=== PATIENT | female | born 1980 | race American Indian/Alaskan Native ===

== ENCOUNTER 2020-12-22 18:13 | Inpatient (IN) | payer MEDICAID ==
[2020-12-22] MEDS ORDERED: Ketorolac 30 MG/ML SDV IVPUSH ONE (18:39)
[2020-12-22] MEDS ORDERED: Ondansetron 4 MG/2 ML SDV IVPUSH ONE (18:39)
[2020-12-22] MEDS ORDERED: Sodium Chloride 0.9% 1,000 ML IV SCH (18:45)
--- NOTE | 2020-12-22 18:48 | EDM.PDOC ---
ED HPI GENERAL MEDICAL PROBLEM - General Chief Complaint: Genitourinary Problem Stated Complaint: KIDNEY INFECTION Time Seen by Provider: 12/22/20 18:31 Source of Information: Reports: Patient History Limitations: Reports: No Limitations - History of Present Illness INITIAL COMMENTS - FREE TEXT/NARRATIVE: HISTORY AND PHYSICAL: History of present illness: A 40-year-old female presents to the emergency room with complaints of right lower back and RLQ pain, which started yesterday AM. She has had fever for 2 nights and body aches along with nausea. She had vomiting today. She has been treating the fever with Tylenol or Naprosyn. She has had a headache, chills, dizziness and tinnitus today. She states she has never had this type of back pain before. Nothing she does seems to help the pain. She states she has not felt like eating or drinking today. Patient denies change in vision, syncope or near syncope. Denies any chest pain, shortness of breath or cough. Denies any diarrhea, constipation or dysuria. Has not noted any blood in urine or stool. Review of systems: As per history of present illness and below otherwise all systems reviewed and negative. Past medical history: As per history of present illness and as reviewed below otherwise noncontributory. Surgical history: As per history of present illness and as reviewed below otherwise noncontribu tory. Social history: See social history for further information Family history: As per history of present illness and as reviewed below otherwise noncontributory. Physical exam: General: Well developed and well nourished. Alert and orientated x 3. Nontoxic in appearance and mild distress. Vital signs are stable and have been reviewed by me. Nursing notes were reviewed. HEENT: Atraumatic, normocephalic, pupils equal and reactive bilaterally, negative for conjunctival pallor or scleral icterus, mucous membranes moist, throat clear, neck supple, nontender, trachea midline. No drooling or trismus noted. No meningeal signs. No hot potato voice noted. Lungs: Clear to auscultation bilaterally. No wheezes, rales, or rhonchi. Chest nontender. Normal work of breathing, no accessory muscles used. Heart: S1S2, regular rate and rhythm without overt murmur, gallops, or rubs. No JVD. No peripheral edema Abdomen: Soft, nondistended, and tender RLQ. No rebound tenderness. Normoactive bowel sounds. Negative for masses. Right costovertebral tenderness. Skin: Intact, warm, dry. No lesions or rashes noted. Hematologic: No petechiae or purpra. Mucosa appropriate color and normal nail bed color and refill. Extremities: Atraumatic, moves all extremities per self without difficulty or deficits, negative for cords or calf pain. Neurovascular unremarkable. Neuro: Awake, alert, oriented. Cranial nerves II through XII unremarkable. Cerebellum unremarkable. Motor and sensory unremarkable throughout. Exam nonfocal. Psychiatric: Mood and affect are appropriate. Normal thought process. Answering questions appropriately. Notes: *This patient was seen and evaluated during the 2019 SARS-CoV-2 novel coronavirus pandemic period. Community viral transmission is ongoing at time of this encounter and the emergency department is operating under pandemic response procedures. Patient is agreeable to labs, IV fluids and medications. Urine shows UTI, Rocephin ordered at this time. May order CT pending lab results. Patient has a leukocytosis of 20.98 with urine showing 40-50 WBC and +[address] ordered, patient aware. She did get minimal relief with Toradol, will order Dilaudid, she has been taken this in the past without the any problems. I have talked with the patient about today's findings, in addition to providing specific details for plan of care. She states she still feels unwell, we discussed admission. She is agreeable to staying for further care and medications. Kirill was consulted on this case, he is agreeable to accepting this patient. Diagnostics: CBC, CMP, UA, BC x 2, Lactate Therapeutics: IV fluids, Zofran, Toradol, Rocephin, Dilaudid Impression: Pyelonephritis, right Ovarian cysts, right Plan: Inpatient admission to Med/Surg Definitive disposition and diagnosis as appropriate pending reevaluation and review of above. Right flank, back, during urination Pain Score (Numeric/FACES): 8 - Related Data Allergies Allergy/AdvReac Type Severity Reaction Status Date / Time clindamycin Allergy Hives Verified 12/22/20 18:33 morphine Allergy Hives Verified 12/22/20 18:33 Home Meds: Home Meds Gabapentin [Neurontin] 800 mg PO TID 10/27/17 [History] Sertraline HCl [Zoloft] 100 mg PO BID 10/27/17 [History] Omeprazole 20 mg PO BIDAC 12/02/17 [History] carisoprodoL [Soma] 350 mg PO TID 12/02/17 [History] Past Medical History - Past Health History Medical/Surgical History: Denies Medical/Surgical History HEENT History: Reports: None Cardiovascular History: Reports: None Respiratory History: Reports: None Gastrointestinal History: Reports: None Genitourinary History: Reports: None 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: Musculoskeletal History: Reports: None, Fracture Other Musculoskeletal History: Spondylosis, Degenerative disc, chronic sciatica Neurological History: Reports: None Psychiatric History: Reports: Anxiety, Depression, Panic Attack Endocrine/Metabolic History: Reports: None Hematologic History: Reports: None Immunologic History: Reports: None Oncologic (Cancer) History: Reports: None Dermatologic History: Reports: None - Infectious Disease History Infectious Disease History: Reports: None - Past Surgical History Head Surgeries/Procedures: Reports: None GI Surgical History: Reports: Cholecystectomy Musculoskeletal Surgical History: Reports: None Social & Family History - Family History Family Medical History: No Pertinent Family History - Tobacco Use Tobacco Use Status *Q: Current Every Day Tobacco User Years of Tobacco use: 15 Packs/Tins Daily: 0.5 - Caffeine Use Caffeine Use: Reports: Coffee, Energy Drinks - Recreational Drug Use Recreational Drug Use: No ED ROS GENERAL - Review of Systems Review Of Systems: Comprehensive ROS is negative, except as noted in HPI. ED EXAM, RENAL/ - Physical Exam Exam: See Below (See dictation) Course - Vital Signs Last Recorded V/S: Last Vital Signs Temp 98.5 F 12/22/20 18:27 Pulse 106 H 12/22/20 21:03 Resp 16 12/22/20 21:03 BP 106/56 L 12/22/20 21:03 Pulse Ox 95 12/22/20 21:03 - Orders/Labs/Meds Orders: Active Orders 24 hr Category Date Time Status Admission Status [Patient Status] [ADT] Stat ADT 12/22/20 21:42 Active CULTURE BLOOD [BC] Stat Lab 12/22/20 21:05 Ordered CULTURE BLOOD [BC] Stat Lab 12/22/20 21:34 Received CULTURE URINE [RM] Stat Lab 12/22/20 18:30 Received Sodium Chloride 0.9% [Normal Saline] 1,000 ml Med 12/22/20 18:45 Active IV ASDIRECTED Sodium Chloride 0.9% [Normal Saline] 1,000 ml Med 12/22/20 21:09 Active IV STAT Blood Culture x2 Reflex Set [OM.PC] Stat Oth 12/22/20 21:04 Ordered Labs: Laboratory Tests 12/22/20 12/22/20 12/22/20 Range/Units 18:30 18:39 19:04 WBC 20.98 H (4.0-11.0) K/uL RBC 4.56 (4.30-5.90) M/uL Hgb 7.5 L (12.0-16.0) g/dL Hct 27.7 L (36.0-46.0) % MCV 60.7 L (80.0-98.0) fL MCH 16.4 L (27.0-32.0) pg MCHC 27.1 L (31.0-37.0) g/dL RDW Std Deviation 41.5 (28.0-62.0) fl RDW Coeff of Aniyah 19 H (11.0-15.0) % Plt Count 350 (150-400) K/uL MPV 8.20 (7.40-12.00) fL Add Manual Diff YES Neutrophils % (Manual) 79 (48.0-80.0) % Band Neutrophils % 7 % Lymphocytes % (Manual) 8 L (16.0-40.0) % Monocytes % (Manual) 4 (0.0-15.0) % Eosinophils % (Manual) 1 (0.0-7.0) % Basophils % (Manual) 1 (0.0-1.5) % Nucleated RBC % 0.0 /100WBC Absolute Seg Neuts 16.6 H (1.4-5.7) Band Neutrophils # 1.5 Lymphocytes # (Manual) 1.7 (0.6-2.4) Monocytes # (Manual) 0.8 (0.0-0.8) Eosinophils # (Manual) 0.2 (0.0-0.7) Basophils # (Manual) 0.2 H (0.0-0.1) Nucleated RBCs # 0 K/uL Hypochromasia 1+ SLIGHT Poikilocytosis 1+ SLIGHT Anisocytosis 1+ SLIGHT Lactate (0.20-2.00) mmol/L Sodium (136-145) mmol/L Potassium (3.5-5.1) mmol/L Chloride (98-107) mmol/L Carbon Dioxide (21.0-32.0) mmol/L BUN (7.0-18.0) mg/dL Creatinine (0.6-1.0) mg/dL Est Cr Clr Drug Dosing mL/min Estimated GFR (MDRD) ml/min Glucose (74-106) mg/dL Calcium (8.5-10.1) mg/dL Total Bilirubin (0.2-1.0) mg/dL AST (15-37) IU/L ALT (14-63) IU/L Alkaline Phosphatase (46-116) U/L Total Protein (6.4-8.2) g/dL Albumin (3.4-5.0) g/dL Globulin (2.6-4.0) g/dL Albumin/Globulin Ratio (0.9-1.6) Urine Color YELLOW Urine Appearance CLEAR Urine pH 6.5 (5.0-8.0) Ur Specific [place] 1.010 (1.001-1.035) Urine Protein TRACE H (NEGATIVE) mg/dL Urine Glucose (UA) NEGATIVE (NEGATIVE) mg/dL Urine Ketones NEGATIVE (NEGATIVE) mg/dL Urine Occult Blood TRACE-INTACT H (NEGATIVE) Urine Nitrite NEGATIVE (NEGATIVE) Urine Bilirubin NEGATIVE (NEGATIVE) Urine Urobilinogen 1.0 (<2.0) EU/dL Ur Leukocyte Esterase MODERATE H (NEGATIVE) Urine RBC 1-3 (0-2/HPF) Urine WBC 40-50 (0-5/HPF) Ur Epithelial Cells MODERATE (NONE-FEW) Urine Bacteria 1+ H (NEGATIVE) Urine HCG, Qual NEGATIVE (NEGATIVE) SARS-CoV-2 RNA (JUSTINE) (NEGATIVE) 12/22/20 12/22/20 12/22/20 Range/Units 19:04 20:58 21:34 WBC (4.0-11.0) K/uL RBC (4.30-5.90) M/uL Hgb (12.0-16.0) g/dL Hct (36.0-46.0) % MCV (80.0-98.0) fL MCH (27.0-32.0) pg MCHC (31.0-37.0) g/dL RDW Std Deviation (28.0-62.0) fl RDW Coeff of Aniyah (11.0-15.0) % Plt Count (150-400) K/uL MPV (7.40-12.00) fL Add Manual Diff Neutrophils % (Manual) (48.0-80.0) % Band Neutrophils % % Lymphocytes % (Manual) (16.0-40.0) % Monocytes % (Manual) (0.0-15.0) % Eosinophils % (Manual) (0.0-7.0) % Basophils % (Manual) (0.0-1.5) % Nucleated RBC % /100WBC Absolute Seg Neuts (1.4-5.7) Band Neutrophils # Lymphocytes # (Manual) (0.6-2.4) Monocytes # (Manual) (0.0-0.8) Eosinophils # (Manual) (0.0-0.7) Basophils # (Manual) (0.0-0.1) Nucleated RBCs # K/uL Hypochromasia Poikilocytosis Anisocytosis Lactate 0.5 (0.20-2.00) mmol/L Sodium 134 L (136-145) mmol/L Potassium 3.5 (3.5-5.1) mmol/L Chloride 101 (98-107) mmol/L Carbon Dioxide 21.9 (21.0-32.0) mmol/L BUN 12 (7.0-18.0) mg/dL Creatinine 0.8 (0.6-1.0) mg/dL Est Cr Clr Drug Dosing 105.72 mL/min Estimated GFR (MDRD) > 60.0 ml/min Glucose 153 H (74-106) mg/dL Calcium 8.4 L (8.5-10.1) mg/dL Total Bilirubin 0.4 (0.2-1.0) mg/dL AST 19 (15-37) IU/L ALT 31 (14-63) IU/L Alkaline Phosphatase 113 (46-116) U/L Total Protein 7.4 (6.4-8.2) g/dL Albumin 3.3 L (3.4-5.0) g/dL Globulin 4.1 H (2.6-4.0) g/dL Albumin/Globulin Ratio 0.8 L (0.9-1.6) Urine Color Urine Appearance Urine pH (5.0-8.0) Ur Specific [place] (1.001-1.035) Urine Protein (NEGATIVE) mg/dL Urine Glucose (UA) (NEGATIVE) mg/dL Urine Ketones (NEGATIVE) mg/dL Urine Occult Blood (NEGATIVE) Urine Nitrite (NEGATIVE) Urine Bilirubin (NEGATIVE) Urine Urobilinogen (<2.0) EU/dL Ur Leukocyte Esterase (NEGATIVE) Urine RBC (0-2/HPF) Urine WBC (0-5/HPF) Ur Epithelial Cells (NONE-FEW) Urine Bacteria (NEGATIVE) Urine HCG, Qual (NEGATIVE) SARS-CoV-2 RNA (JUSTINE) NEGATIVE (NEGATIVE) Departure - Departure Time of Disposition: 21:46 Disposition: Admitted As Inpatient 64 Clinical Impression: Pyelonephritis - Discharge Information Referrals: Marialuisa Hunter NP [Primary Care Provider] - Forms: ED Department Discharge Sepsis Event Note (ED) - Evaluation Sepsis Screening Result: No Definite Risk - Focused Exam Vital Signs: Vital Signs Temp Pulse Resp BP Pulse Ox 12/22/20 21:03 106 H 16 106/56 L 95 12/22/20 20:35 107 H 16 111/52 L 94 L 12/22/20 20:07 100 20 106/63 96 12/22/20 18:27 98.5 F 118 H 18 128/82 96 - My Orders Last 24 Hours: My Active Orders 12/22/20 18:30 CULTURE URINE [RM] Stat 12/22/20 18:45 Sodium Chloride 0.9% [Normal Saline] 1,000 ml IV ASDIRECTED 12/22/20 21:04 Blood Culture x2 Reflex Set [OM.PC] Stat 12/22/20 21:05 CULTURE BLOOD [BC] Stat 12/22/20 21:09 Sodium Chloride 0.9% [Normal Saline] 1,000 ml IV STAT 12/22/20 21:34 CULTURE BLOOD [BC] Stat 12/22/20 21:42 Admission Status [Patient Status] [ADT] Stat - Assessment/Plan Last 24 Hours: My Active Orders 12/22/20 18:30 CULTURE URINE [RM] Stat 12/22/20 18:45 Sodium Chloride 0.9% [Normal Saline] 1,000 ml IV ASDIRECTED 12/22/20 21:04 Blood Culture x2 Reflex Set [OM.PC] Stat 12/22/20 21:05 CULTURE BLOOD [BC] Stat 12/22/20 21:09 Sodium Chloride 0.9% [Normal Saline] 1,000 ml IV STAT 12/22/20 21:34 CULTURE BLOOD [BC] Stat 12/22/20 21:42 Admission Status [Patient Status] [ADT] Stat
[2020-12-22] MEDS ORDERED: cefTRIAXone 1 GM in Premix Bag 1 BAG IV ONE (19:03)
[2020-12-22 19:35] LABS: BLOOD UREA NITROGEN,BUN 12 mg/dL (7.0-18.0); CARBON DIOXIDE,CO2 21.9 mmol/L (21.0-32.0); CHLORIDE,CL 101 mmol/L (98-107); GLUCOSE RANDOM 153 mg/dL (74-106); POTASSIUM,K 3.5 mmol/L (3.5-5.1); SODIUM,NA 134 mmol/L (136-145)
[2020-12-22] MEDS ORDERED: HYDROmorphone 1 MG/ML Syringe IVPUSH ONE (19:57)
[2020-12-22] MEDS ORDERED: Iopamidol 755 MG/ML 500 ML Multipack Bottle IVPUSH STA (20:21)
--- NOTE | 2020-12-22 21:00 | CT ---
INDICATION: Right lower quadrant pain COMPARISON: 11/23/2020 TECHNIQUE: CT examination of the abdomen and pelvis was performed with the uneventful intravenous administration of 100 cc of Isovue 370 while 2.5 mm thick axial sections were obtained from the lung bases through the pubic symphysis. Oral contrast was not administered. Please note that all CT scans at this facility use dose modulation, iterative reconstruction, and/or weight-based dosing when appropriate to reduce radiation dose to as low as reasonably achievable. FINDINGS: In the abdomen, the liver, spleen, pancreas, and adrenals are normal in appearance. The kidneys are normal in appearance. Clips are seen in the gall bladder fossa from cholecystectomy. The common bile duct is moderately dilated at 14 millimeters, extending through the head of the pancreas, consistent with post cholecystectomy status. The abdominal aorta is normal in caliber with no sign of dilatation. There is no sign of retroperitoneal mass or adenopathy. The stomach, loops of small bowel, and right colon in the abdomen are normal in appearance. There is moderate diverticulosis of the descending colon with no sign of diverticulitis. In the pelvis, the appendix is normal in appearance with no sign of inflammatory process. There is moderate proximal sigmoid diverticulosis without evidence of diverticulitis. The loops of small bowel and colon in the pelvis are otherwise normal in appearance. The right ovary contains a 3.5 x 3.1 centimeter cyst. The uterus and left ovary are normal in appearance. The urinary bladder is normal in appearance. There is no sign of pelvic or inguinal mass or adenopathy. There is no sign of free air or free fluid in the abdomen or pelvis. The lung bases are clear. There is severe L4-5 and L5-S1 disc degenerative disease. The osseous structures are otherwise normal in appearance for the patient`s age. IMPRESSION: CT of the abdomen shows changes of cholecystectomy with moderate dilatation of the common bile duct consistent with post cholecystectomy status. Moderate diverticulosis of the descending colon with no sign of diverticulitis. CT of the pelvis shows a 3.5 x 3.1 centimeter right ovarian cyst. Normal appearance of the appendix. Moderate diverticulosis of the proximal sigmoid colon with no sign of diverticulitis. Please note that all CT scans at this facility use dose modulation, iterative reconstruction, and/or weight-based dosing when appropriate to reduce radiation dose to as low as reasonably achievable. Dictated by Navjot Gilman MD @ Dec 22 2020 8:54PM Signed by Dr. Navjot Gilman @ Dec 22 2020 9:00PM
[2020-12-22] MEDS ORDERED: Sodium Chloride 0.9% 1,000 ML IV ONE (21:09)
--- NOTE | 2020-12-22 23:07 | PCM.HP.2 ---
H&P History of Present Illness - General Date of Service: 12/22/20 Admit Problem/Dx: Admission Diagnosis/Problem Admission Diagnosis/Problem Pyelonephritis - History of Present Illness Initial Comments - Free Text/Narative: 40 yo female with pmh of sciatica and anemia who presented to the ED with two day history of right flank pain, fevers and dysuria with urinary frequency. Patient reports nausea and vomiting. Patient denies any blood in her stool but reports heavier menses past few months. Right flank, back, during urination Pain Score (Numeric/FACES): 6 - Related Data Allergies/Adverse Reactions: Allergies Allergy/AdvReac Type Severity Reaction Status Date / Time clindamycin Allergy Hives Verified 12/23/20 01:26 morphine Allergy Hives Verified 12/23/20 01:26 Home Medications: Home Meds Gabapentin [Neurontin] 800 mg PO TID 10/27/17 [History] Sertraline HCl [Zoloft] 100 mg PO BID 10/27/17 [History] Omeprazole 20 mg PO BIDAC 12/02/17 [History] carisoprodoL [Soma] 350 mg PO TID 12/02/17 [History] Famotidine [Pepcid] 1 tab PO DAILY PRN 12/23/20 [History] Past Medical History - Past Health History Medical/Surgical History: Denies Medical/Surgical History HEENT History: Reports: None Cardiovascular History: Reports: None Respiratory History: Reports: None Gastrointestinal History: Reports: None Genitourinary History: Reports: None 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: Musculoskeletal History: Reports: None, Fracture Other Musculoskeletal History: Spondylosis, Degenerative disc, chronic sciatica Neurological History: Reports: None Psychiatric History: Reports: Anxiety, Depression, Panic Attack Endocrine/Metabolic History: Reports: None Hematologic History: Reports: None Immunologic History: Reports: None Oncologic (Cancer) History: Reports: None Dermatologic History: Reports: None - Infectious Disease History Infectious Disease History: Reports: None - Past Surgical History Head Surgeries/Procedures: Reports: None GI Surgical History: Reports: Cholecystectomy Musculoskeletal Surgical History: Reports: None Social & Family History - Family History Family Medical History: No Pertinent Family History - Tobacco Use Tobacco Use Status *Q: Current Every Day Tobacco User Years of Tobacco use: 15 Packs/Tins Daily: 1 Used Tobacco, but Quit: No Second Hand Smoke Exposure: No - Caffeine Use Caffeine Use: Reports: Coffee, Soda - Recreational Drug Use Recreational Drug Use: No H&P Review of Systems - Review of Systems: Review Of Systems: Comprehensive ROS is negative, except as noted in HPI. Exam - Exam Exam: See Below - Vital Signs Vital Signs: Last Vital Signs Temp 37.1 C 12/22/20 22:29 Pulse 98 12/22/20 22:29 Resp 16 12/22/20 22:29 BP 110/67 12/22/20 22:29 Pulse Ox 96 12/22/20 22:29 Weight: 90.083 kg - Exam General: Alert, Oriented HEENT: Mucosa Moist & [place] Neck: Supple Lungs: Clear to Auscultation, Normal Respiratory Effort Cardiovascular: Regular Rate, Regular Rhythm GI/Abdominal Exam: Normal Bowel Sounds, Soft, Non-Tender Back Exam: No: CVA Tenderness (L), CVA Tenderness (R) Skin: Warm, Dry, Intact - Patient Data Lab Results Last 24 hrs: Laboratory Results - last 24 hr 12/22/20 12/22/20 12/22/20 Range/Units 18:30 18:39 19:04 WBC 20.98 H (4.0-11.0) K/uL RBC 4.56 (4.30-5.90) M/uL Hgb 7.5 L (12.0-16.0) g/dL Hct 27.7 L (36.0-46.0) % MCV 60.7 L (80.0-98.0) fL MCH 16.4 L (27.0-32.0) pg MCHC 27.1 L (31.0-37.0) g/dL RDW Std Deviation 41.5 (28.0-62.0) fl RDW Coeff of Aniyah 19 H (11.0-15.0) % Plt Count 350 (150-400) K/uL MPV 8.20 (7.40-12.00) fL Add Manual Diff YES Neutrophils % (Manual) 79 (48.0-80.0) % Band Neutrophils % 7 % Lymphocytes % (Manual) 8 L (16.0-40.0) % Monocytes % (Manual) 4 (0.0-15.0) % Eosinophils % (Manual) 1 (0.0-7.0) % Basophils % (Manual) 1 (0.0-1.5) % Nucleated RBC % 0.0 /100WBC Absolute Seg Neuts 16.6 H (1.4-5.7) Band Neutrophils # 1.5 Lymphocytes # (Manual) 1.7 (0.6-2.4) Monocytes # (Manual) 0.8 (0.0-0.8) Eosinophils # (Manual) 0.2 (0.0-0.7) Basophils # (Manual) 0.2 H (0.0-0.1) Nucleated RBCs # 0 K/uL Hypochromasia 1+ SLIGHT Poikilocytosis 1+ SLIGHT Anisocytosis 1+ SLIGHT Lactate (0.20-2.00) mmol/L Sodium (136-145) mmol/L Potassium (3.5-5.1) mmol/L Chloride (98-107) mmol/L Carbon Dioxide (21.0-32.0) mmol/L BUN (7.0-18.0) mg/dL Creatinine (0.6-1.0) mg/dL Est Cr Clr Drug Dosing mL/min Estimated GFR (MDRD) ml/min Glucose (74-106) mg/dL Calcium (8.5-10.1) mg/dL Total Bilirubin (0.2-1.0) mg/dL AST (15-37) IU/L ALT (14-63) IU/L Alkaline Phosphatase (46-116) U/L Total Protein (6.4-8.2) g/dL Albumin (3.4-5.0) g/dL Globulin (2.6-4.0) g/dL Albumin/Globulin Ratio (0.9-1.6) Urine Color YELLOW Urine Appearance CLEAR Urine pH 6.5 (5.0-8.0) Ur Specific [place] 1.010 (1.001-1.035) Urine Protein TRACE H (NEGATIVE) mg/dL Urine Glucose (UA) NEGATIVE (NEGATIVE) mg/dL Urine Ketones NEGATIVE (NEGATIVE) mg/dL Urine Occult Blood TRACE-INTACT H (NEGATIVE) Urine Nitrite NEGATIVE (NEGATIVE) Urine Bilirubin NEGATIVE (NEGATIVE) Urine Urobilinogen 1.0 (<2.0) EU/dL Ur Leukocyte Esterase MODERATE H (NEGATIVE) Urine RBC 1-3 (0-2/HPF) Urine WBC 40-50 (0-5/HPF) Ur Epithelial Cells MODERATE (NONE-FEW) Urine Bacteria 1+ H (NEGATIVE) Urine HCG, Qual NEGATIVE (NEGATIVE) SARS-CoV-2 RNA (JUSTINE) (NEGATIVE) 12/22/20 12/22/20 12/22/20 Range/Units 19:04 20:58 21:34 WBC (4.0-11.0) K/uL RBC (4.30-5.90) M/uL Hgb (12.0-16.0) g/dL Hct (36.0-46.0) % MCV (80.0-98.0) fL MCH (27.0-32.0) pg MCHC (31.0-37.0) g/dL RDW Std Deviation (28.0-62.0) fl RDW Coeff of Aniyah (11.0-15.0) % Plt Count (150-400) K/uL MPV (7.40-12.00) fL Add Manual Diff Neutrophils % (Manual) (48.0-80.0) % Band Neutrophils % % Lymphocytes % (Manual) (16.0-40.0) % Monocytes % (Manual) (0.0-15.0) % Eosinophils % (Manual) (0.0-7.0) % Basophils % (Manual) (0.0-1.5) % Nucleated RBC % /100WBC Absolute Seg Neuts (1.4-5.7) Band Neutrophils # Lymphocytes # (Manual) (0.6-2.4) Monocytes # (Manual) (0.0-0.8) Eosinophils # (Manual) (0.0-0.7) Basophils # (Manual) (0.0-0.1) Nucleated RBCs # K/uL Hypochromasia Poikilocytosis Anisocytosis Lactate 0.5 (0.20-2.00) mmol/L Sodium 134 L (136-145) mmol/L Potassium 3.5 (3.5-5.1) mmol/L Chloride 101 (98-107) mmol/L Carbon Dioxide 21.9 (21.0-32.0) mmol/L BUN 12 (7.0-18.0) mg/dL Creatinine 0.8 (0.6-1.0) mg/dL Est Cr Clr Drug Dosing 105.72 mL/min Estimated GFR (MDRD) > 60.0 ml/min Glucose 153 H (74-106) mg/dL Calcium 8.4 L (8.5-10.1) mg/dL Total Bilirubin 0.4 (0.2-1.0) mg/dL AST 19 (15-37) IU/L ALT 31 (14-63) IU/L Alkaline Phosphatase 113 (46-116) U/L Total Protein 7.4 (6.4-8.2) g/dL Albumin 3.3 L (3.4-5.0) g/dL Globulin 4.1 H (2.6-4.0) g/dL Albumin/Globulin Ratio 0.8 L (0.9-1.6) Urine Color Urine Appearance Urine pH (5.0-8.0) Ur Specific [place] (1.001-1.035) Urine Protein (NEGATIVE) mg/dL Urine Glucose (UA) (NEGATIVE) mg/dL Urine Ketones (NEGATIVE) mg/dL Urine Occult Blood (NEGATIVE) Urine Nitrite (NEGATIVE) Urine Bilirubin (NEGATIVE) Urine Urobilinogen (<2.0) EU/dL Ur Leukocyte Esterase (NEGATIVE) Urine RBC (0-2/HPF) Urine WBC (0-5/HPF) Ur Epithelial Cells (NONE-FEW) Urine Bacteria (NEGATIVE) Urine HCG, Qual (NEGATIVE) SARS-CoV-2 RNA (JUSTINE) NEGATIVE (NEGATIVE) Result Diagrams: 12/24/20 05:55 12/24/20 05:55 Sepsis Event Note - Evaluation Sepsis Screening Result: No Definite Risk - Focused Exam Vital Signs: Vital Signs Temp Pulse Resp BP Pulse Ox 12/22/20 22:29 37.1 C 98 16 110/67 96 12/22/20 21:48 107 H 14 114/63 94 L 12/22/20 21:03 106 H 16 106/56 L 95 12/22/20 20:35 107 H 16 111/52 L 94 L 12/22/20 20:07 100 20 106/63 96 12/22/20 18:27 36.9 C 118 H 18 128/82 96 - Problem List (1) Sepsis secondary to UTI SNOMED Code(s): 105016225 ICD Code: A41.9 - SEPSIS, UNSPECIFIED ORGANISM; N39.0 - URINARY TRACT INFECTION, SITE NOT SPECIFIED Status: Acute Current Visit: Yes (2) Anemia SNOMED Code(s): 624692768 ICD Code: D64.9 - ANEMIA, UNSPECIFIED Status: Chronic Current Visit: Yes Qualifiers: Anemia type: iron deficiency Iron deficiency anemia type: chronic blood loss Qualified Code(s): D50.0 - Iron deficiency anemia secondary to blood loss (chronic) Problem List Initiated/Reviewed/Updated: Yes Orders Last 24hrs: Active Orders 24 hr Category Date Time Status Admission Status [Patient Status] [ADT] Stat ADT 12/22/20 21:42 Active CULTURE BLOOD [BC] Stat Lab 12/22/20 21:34 Received CULTURE BLOOD [BC] Stat Lab 12/22/20 21:44 Received CULTURE URINE [RM] Stat Lab 12/22/20 18:30 Received HYDROmorphone [Dilaudid] Med 12/22/20 22:59 Active 0.5 mg IVPUSH Q3H PRN Sodium Chloride 0.9% [Normal Saline] 1,000 ml Med 12/22/20 18:45 Active IV ASDIRECTED Sodium Chloride 0.9% [Normal Saline] 1,000 ml Med 12/22/20 21:09 Active IV STAT Blood Culture x2 Reflex Set [OM.PC] Stat Oth 12/22/20 21:04 Ordered Assessment/Plan Comment:: 40 yo female admitted for suspected pyelonephritis with sepsis. We will treat with meropenem and vancomycin. Cultures ordered. Tachycardia resolved after fluid resuscitation.
[2020-12-22] MEDS: HYDROmorphone 1 MG/ML Syringe IVPUSH PRN (23:19)
[2020-12-22] MEDS ORDERED: Ondansetron 4 MG/2 ML SDV IVPUSH PRN (23:26)
[2020-12-22] MEDS ORDERED: Meropenem 1 GM in Sodium Chloride 0.9% 100 ML IV SCH (23:30)
[2020-12-23] MEDS ORDERED: VANCOmycin 2 GM/400 ML 2 GM in Premix Bag 1 BAG IV ONE ×2
[2020-12-23] MEDS: Meropenem Premix 50 ML IV SCH ×3 (00:31→17:25)
[2020-12-23] MEDS: Heparin Sodium 5,000 Units/ML Vial SUBCUT SCH ×2 (00:31→06:36)
[2020-12-23] MEDS: Sodium Chloride 0.9% 1,000 ML IV SCH ×2 (00:32→17:41)
[2020-12-23] MEDS: HYDROmorphone 1 MG/ML Syringe IVPUSH PRN ×6 (03:50→21:37)
[2020-12-23 05:58] LABS: BLOOD UREA NITROGEN,BUN 8 mg/dL (7.0-18.0); CARBON DIOXIDE,CO2 22.8 mmol/L (21.0-32.0); CHLORIDE,CL 108 mmol/L (98-107); GLUCOSE RANDOM 104 mg/dL (74-106); POTASSIUM,K 3.8 mmol/L (3.5-5.1); SODIUM,NA 139 mmol/L (136-145)
[2020-12-23] MEDS: Gabapentin 800 MG Tab PO SCH ×3 (06:36→22:52)
[2020-12-23] MEDS ORDERED: Omeprazole 20 MG Cap.CR PO SCH (07:30)
--- NOTE | 2020-12-23 08:00 | PCM.PN ---
- General Info Date of Service: 12/23/20 Admission Dx/Problem (Free Text): Admission Diagnosis/Problem Admission Diagnosis/Problem Pyelonephritis Subjective Update: Reports she is feeling mildly improved from last night. She reports lightheadedness and dizziness intermittently. Reports mild frontal headache. Continues to report right flank pain denies any dysuria or lower abdominal pain. No diarrhea and no bleeding noted. Reports her last heavy menstrual period was approximately 1 month ago reports that she just had a. And it was approximately 3 days of bleeding which had improved since previous months. Denies ever having black or bloody bowel movements. Does have intermittent heartburn and takes Prilosec at home twice a day. Functional Status: Reports: Pain Controlled, Tolerating Diet, Ambulating, Urinating - Review of Systems General: Reports: Fatigue, Malaise HEENT: Reports: Headaches (Frontal). Denies: Sore Throat, Visual Changes Pulmonary: Reports: No Symptoms. Denies: Shortness of Breath, Cough, Sputum Cardiovascular: Reports: Lightheadedness. Denies: Chest Pain, Palpitations, Edema Gastrointestinal: Denies: Abdominal Pain, Nausea, Vomiting Genitourinary: Reports: Flank Pain (Mainly right-sided). Denies: Dysuria Musculoskeletal: Reports: Other (Right sciatic pain and cramping) Skin: Reports: No Symptoms Neurological: Reports: No Symptoms Psychiatric: Reports: No Symptoms - Patient Data Vitals - Most Recent: Last Vital Signs Temp 99.4 F 12/23/20 03:26 Pulse 88 12/23/20 03:26 Resp 12 12/23/20 03:26 BP 98/54 L 12/23/20 03:26 Pulse Ox 98 12/23/20 03:26 Weight - Most Recent: 90.083 kg I&O - Last 24 Hours: Intake & Output 12/22/20 12/23/20 12/23/20 22:59 06:59 14:59 Intake Total 2450 Output Total 800 Balance 1650 Lab Results Last 24 Hours: Laboratory Results - last 24 hr 12/22/20 12/22/20 12/22/20 Range/Units 18:30 18:39 19:04 WBC 20.98 H (4.0-11.0) K/uL RBC 4.56 (4.30-5.90) M/uL Hgb 7.5 L (12.0-16.0) g/dL Hct 27.7 L (36.0-46.0) % MCV 60.7 L (80.0-98.0) fL MCH 16.4 L (27.0-32.0) pg MCHC 27.1 L (31.0-37.0) g/dL RDW Std Deviation 41.5 (28.0-62.0) fl RDW Coeff of Aniyah 19 H (11.0-15.0) % Plt Count 350 (150-400) K/uL MPV 8.20 (7.40-12.00) fL Neut % (Auto) (48.0-80.0) % Lymph % (Auto) (16.0-40.0) % [place] % (Auto) (0.0-15.0) % Eos % (Auto) (0.0-7.0) % Baso % (Auto) (0.0-1.5) % Neut # (Auto) (1.4-5.7) K/uL Lymph # (Auto) (0.6-2.4) K/uL [place] # (Auto) (0.0-0.8) K/uL Eos # (Auto) (0.0-0.7) K/uL Baso # (Auto) (0.0-0.1) K/uL Add Manual Diff YES Neutrophils % (Manual) 79 (48.0-80.0) % Band Neutrophils % 7 % Lymphocytes % (Manual) 8 L (16.0-40.0) % Monocytes % (Manual) 4 (0.0-15.0) % Eosinophils % (Manual) 1 (0.0-7.0) % Basophils % (Manual) 1 (0.0-1.5) % Nucleated RBC % 0.0 /100WBC Absolute Seg Neuts 16.6 H (1.4-5.7) Band Neutrophils # 1.5 Lymphocytes # (Manual) 1.7 (0.6-2.4) Monocytes # (Manual) 0.8 (0.0-0.8) Eosinophils # (Manual) 0.2 (0.0-0.7) Basophils # (Manual) 0.2 H (0.0-0.1) Nucleated RBCs # 0 K/uL Hypochromasia 1+ SLIGHT Poikilocytosis 1+ SLIGHT Anisocytosis 1+ SLIGHT Lactate (0.20-2.00) mmol/L Sodium (136-145) mmol/L Potassium (3.5-5.1) mmol/L Chloride (98-107) mmol/L Carbon Dioxide (21.0-32.0) mmol/L BUN (7.0-18.0) mg/dL Creatinine (0.6-1.0) mg/dL Est Cr Clr Drug Dosing mL/min Estimated GFR (MDRD) ml/min Glucose (74-106) mg/dL Calcium (8.5-10.1) mg/dL Iron (50-175) ug/dL TIBC (250-450) ug/dL % Saturation (20-55) % Ferritin (8-252) ng/mL Total Bilirubin (0.2-1.0) mg/dL AST (15-37) IU/L ALT (14-63) IU/L Alkaline Phosphatase (46-116) U/L Total Protein (6.4-8.2) g/dL Albumin (3.4-5.0) g/dL Globulin (2.6-4.0) g/dL Albumin/Globulin Ratio (0.9-1.6) Urine Color YELLOW Urine Appearance CLEAR Urine pH 6.5 (5.0-8.0) Ur Specific [place] 1.010 (1.001-1.035) Urine Protein TRACE H (NEGATIVE) mg/dL Urine Glucose (UA) NEGATIVE (NEGATIVE) mg/dL Urine Ketones NEGATIVE (NEGATIVE) mg/dL Urine Occult Blood TRACE-INTACT H (NEGATIVE) Urine Nitrite NEGATIVE (NEGATIVE) Urine Bilirubin NEGATIVE (NEGATIVE) Urine Urobilinogen 1.0 (<2.0) EU/dL Ur Leukocyte Esterase MODERATE H (NEGATIVE) Urine RBC 1-3 (0-2/HPF) Urine WBC 40-50 (0-5/HPF) Ur Epithelial Cells MODERATE (NONE-FEW) Urine Bacteria 1+ H (NEGATIVE) Urine HCG, Qual NEGATIVE (NEGATIVE) SARS-CoV-2 RNA (JUSTINE) (NEGATIVE) 12/22/20 12/22/20 12/22/20 Range/Units 19:04 20:58 21:34 WBC (4.0-11.0) K/uL RBC (4.30-5.90) M/uL Hgb (12.0-16.0) g/dL Hct (36.0-46.0) % MCV (80.0-98.0) fL MCH (27.0-32.0) pg MCHC (31.0-37.0) g/dL RDW Std Deviation (28.0-62.0) fl RDW Coeff of Aniyah (11.0-15.0) % Plt Count (150-400) K/uL MPV (7.40-12.00) fL Neut % (Auto) (48.0-80.0) % Lymph % (Auto) (16.0-40.0) % [place] % (Auto) (0.0-15.0) % Eos % (Auto) (0.0-7.0) % Baso % (Auto) (0.0-1.5) % Neut # (Auto) (1.4-5.7) K/uL Lymph # (Auto) (0.6-2.4) K/uL [place] # (Auto) (0.0-0.8) K/uL Eos # (Auto) (0.0-0.7) K/uL Baso # (Auto) (0.0-0.1) K/uL Add Manual Diff Neutrophils % (Manual) (48.0-80.0) % Band Neutrophils % % Lymphocytes % (Manual) (16.0-40.0) % Monocytes % (Manual) (0.0-15.0) % Eosinophils % (Manual) (0.0-7.0) % Basophils % (Manual) (0.0-1.5) % Nucleated RBC % /100WBC Absolute Seg Neuts (1.4-5.7) Band Neutrophils # Lymphocytes # (Manual) (0.6-2.4) Monocytes # (Manual) (0.0-0.8) Eosinophils # (Manual) (0.0-0.7) Basophils # (Manual) (0.0-0.1) Nucleated RBCs # K/uL Hypochromasia Poikilocytosis Anisocytosis Lactate 0.5 (0.20-2.00) mmol/L Sodium 134 L (136-145) mmol/L Potassium 3.5 (3.5-5.1) mmol/L Chloride 101 (98-107) mmol/L Carbon Dioxide 21.9 (21.0-32.0) mmol/L BUN 12 (7.0-18.0) mg/dL Creatinine 0.8 (0.6-1.0) mg/dL Est Cr Clr Drug Dosing 105.72 mL/min Estimated GFR (MDRD) > 60.0 ml/min Glucose 153 H (74-106) mg/dL Calcium 8.4 L (8.5-10.1) mg/dL Iron (50-175) ug/dL TIBC (250-450) ug/dL % Saturation (20-55) % Ferritin (8-252) ng/mL Total Bilirubin 0.4 (0.2-1.0) mg/dL AST 19 (15-37) IU/L ALT 31 (14-63) IU/L Alkaline Phosphatase 113 (46-116) U/L Total Protein 7.4 (6.4-8.2) g/dL Albumin 3.3 L (3.4-5.0) g/dL Globulin 4.1 H (2.6-4.0) g/dL Albumin/Globulin Ratio 0.8 L (0.9-1.6) Urine Color Urine Appearance Urine pH (5.0-8.0) Ur Specific [place] (1.001-1.035) Urine Protein (NEGATIVE) mg/dL Urine Glucose (UA) (NEGATIVE) mg/dL Urine Ketones (NEGATIVE) mg/dL Urine Occult Blood (NEGATIVE) Urine Nitrite (NEGATIVE) Urine Bilirubin (NEGATIVE) Urine Urobilinogen (<2.0) EU/dL Ur Leukocyte Esterase (NEGATIVE) Urine RBC (0-2/HPF) Urine WBC (0-5/HPF) Ur Epithelial Cells (NONE-FEW) Urine Bacteria (NEGATIVE) Urine HCG, Qual (NEGATIVE) SARS-CoV-2 RNA (JUSTINE) NEGATIVE (NEGATIVE) 12/23/20 12/23/20 12/23/20 Range/Units 05:12 05:12 05:12 WBC 16.17 H (4.0-11.0) K/uL RBC 3.85 L (4.30-5.90) M/uL Hgb 6.3 L (12.0-16.0) g/dL Hct 23.7 L (36.0-46.0) % MCV 61.6 L (80.0-98.0) fL MCH 16.4 L (27.0-32.0) pg MCHC 26.6 L (31.0-37.0) g/dL RDW Std Deviation 42.6 (28.0-62.0) fl RDW Coeff of Aniyah 19 H (11.0-15.0) % Plt Count 296 (150-400) K/uL MPV 8.40 (7.40-12.00) fL Neut % (Auto) 79.7 (48.0-80.0) % Lymph % (Auto) 10.0 L (16.0-40.0) % [place] % (Auto) 9.0 (0.0-15.0) % Eos % (Auto) 1.2 (0.0-7.0) % Baso % (Auto) 0.1 (0.0-1.5) % Neut # (Auto) 12.9 H (1.4-5.7) K/uL Lymph # (Auto) 1.6 (0.6-2.4) K/uL [place] # (Auto) 1.5 H (0.0-0.8) K/uL Eos # (Auto) 0.2 (0.0-0.7) K/uL Baso # (Auto) 0.0 (0.0-0.1) K/uL Add Manual Diff Neutrophils % (Manual) (48.0-80.0) % Band Neutrophils % % Lymphocytes % (Manual) (16.0-40.0) % Monocytes % (Manual) (0.0-15.0) % Eosinophils % (Manual) (0.0-7.0) % Basophils % (Manual) (0.0-1.5) % Nucleated RBC % 0.0 /100WBC Absolute Seg Neuts (1.4-5.7) Band Neutrophils # Lymphocytes # (Manual) (0.6-2.4) Monocytes # (Manual) (0.0-0.8) Eosinophils # (Manual) (0.0-0.7) Basophils # (Manual) (0.0-0.1) Nucleated RBCs # 0 K/uL Hypochromasia Poikilocytosis Anisocytosis Lactate (0.20-2.00) mmol/L Sodium 139 (136-145) mmol/L Potassium 3.8 (3.5-5.1) mmol/L Chloride 108 H (98-107) mmol/L Carbon Dioxide 22.8 (21.0-32.0) mmol/L BUN 8 (7.0-18.0) mg/dL Creatinine 0.7 (0.6-1.0) mg/dL Est Cr Clr Drug Dosing 120.82 mL/min Estimated GFR (MDRD) > 60.0 ml/min Glucose 104 (74-106) mg/dL Calcium 7.8 L (8.5-10.1) mg/dL Iron 6 L (50-175) ug/dL TIBC 330 (250-450) ug/dL % Saturation 1.82 L (20-55) % Ferritin 43 (8-252) ng/mL Total Bilirubin 0.3 (0.2-1.0) mg/dL AST 12 L (15-37) IU/L ALT 24 (14-63) IU/L Alkaline Phosphatase 88 (46-116) U/L Total Protein 5.9 L (6.4-8.2) g/dL Albumin 2.5 L (3.4-5.0) g/dL Globulin 3.4 (2.6-4.0) g/dL Albumin/Globulin Ratio 0.7 L (0.9-1.6) Urine Color Urine Appearance Urine pH (5.0-8.0) Ur Specific [place] (1.001-1.035) Urine Protein (NEGATIVE) mg/dL Urine Glucose (UA) (NEGATIVE) mg/dL Urine Ketones (NEGATIVE) mg/dL Urine Occult Blood (NEGATIVE) Urine Nitrite (NEGATIVE) Urine Bilirubin (NEGATIVE) Urine Urobilinogen (<2.0) EU/dL Ur Leukocyte Esterase (NEGATIVE) Urine RBC (0-2/HPF) Urine WBC (0-5/HPF) Ur Epithelial Cells (NONE-FEW) Urine Bacteria (NEGATIVE) Urine HCG, Qual (NEGATIVE) SARS-CoV-2 RNA (JUSTINE) (NEGATIVE) - Exam Quality Assessment: DVT Prophylaxis. No: Supplemental Oxygen General: Alert, Oriented, Cooperative, No Acute Distress Lungs: Clear to Auscultation, Normal Respiratory Effort Cardiovascular: Regular Rate, Regular Rhythm, No Murmurs GI/Abdominal Exam: Normal Bowel Sounds, Soft, Non-Tender Back Exam: CVA Tenderness (R) Extremities: Normal Inspection, Normal Range of Motion, Non-Tender, No Pedal Edema Wound/Incisions: Healing Well Neurological: No New Focal Deficit Psy/Mental Status: Alert, Normal Affect, Normal Mood - Patient Data Lab Results Last 24 hrs: Laboratory Results - last 24 hr 12/22/20 12/22/20 12/22/20 Range/Units 18:30 18:39 19:04 WBC 20.98 H (4.0-11.0) K/uL RBC 4.56 (4.30-5.90) M/uL Hgb 7.5 L (12.0-16.0) g/dL Hct 27.7 L (36.0-46.0) % MCV 60.7 L (80.0-98.0) fL MCH 16.4 L (27.0-32.0) pg MCHC 27.1 L (31.0-37.0) g/dL RDW Std Deviation 41.5 (28.0-62.0) fl RDW Coeff of Aniyah 19 H (11.0-15.0) % Plt Count 350 (150-400) K/uL MPV 8.20 (7.40-12.00) fL Neut % (Auto) (48.0-80.0) % Lymph % (Auto) (16.0-40.0) % [place] % (Auto) (0.0-15.0) % Eos % (Auto) (0.0-7.0) % Baso % (Auto) (0.0-1.5) % Neut # (Auto) (1.4-5.7) K/uL Lymph # (Auto) (0.6-2.4) K/uL [place] # (Auto) (0.0-0.8) K/uL Eos # (Auto) (0.0-0.7) K/uL Baso # (Auto) (0.0-0.1) K/uL Add Manual Diff YES Neutrophils % (Manual) 79 (48.0-80.0) % Band Neutrophils % 7 % Lymphocytes % (Manual) 8 L (16.0-40.0) % Monocytes % (Manual) 4 (0.0-15.0) % Eosinophils % (Manual) 1 (0.0-7.0) % Basophils % (Manual) 1 (0.0-1.5) % Nucleated RBC % 0.0 /100WBC Absolute Seg Neuts 16.6 H (1.4-5.7) Band Neutrophils # 1.5 Lymphocytes # (Manual) 1.7 (0.6-2.4) Monocytes # (Manual) 0.8 (0.0-0.8) Eosinophils # (Manual) 0.2 (0.0-0.7) Basophils # (Manual) 0.2 H (0.0-0.1) Nucleated RBCs # 0 K/uL Hypochromasia 1+ SLIGHT Poikilocytosis 1+ SLIGHT Anisocytosis 1+ SLIGHT Lactate (0.20-2.00) mmol/L Sodium (136-145) mmol/L Potassium (3.5-5.1) mmol/L Chloride (98-107) mmol/L Carbon Dioxide (21.0-32.0) mmol/L BUN (7.0-18.0) mg/dL Creatinine (0.6-1.0) mg/dL Est Cr Clr Drug Dosing mL/min Estimated GFR (MDRD) ml/min Glucose (74-106) mg/dL Calcium (8.5-10.1) mg/dL Iron (50-175) ug/dL TIBC (250-450) ug/dL % Saturation (20-55) % Ferritin (8-252) ng/mL Total Bilirubin (0.2-1.0) mg/dL AST (15-37) IU/L ALT (14-63) IU/L Alkaline Phosphatase (46-116) U/L Total Protein (6.4-8.2) g/dL Albumin (3.4-5.0) g/dL Globulin (2.6-4.0) g/dL Albumin/Globulin Ratio (0.9-1.6) Urine Color YELLOW Urine Appearance CLEAR Urine pH 6.5 (5.0-8.0) Ur Specific [place] 1.010 (1.001-1.035) Urine Protein TRACE H (NEGATIVE) mg/dL Urine Glucose (UA) NEGATIVE (NEGATIVE) mg/dL Urine Ketones NEGATIVE (NEGATIVE) mg/dL Urine Occult Blood TRACE-INTACT H (NEGATIVE) Urine Nitrite NEGATIVE (NEGATIVE) Urine Bilirubin NEGATIVE (NEGATIVE) Urine Urobilinogen 1.0 (<2.0) EU/dL Ur Leukocyte Esterase MODERATE H (NEGATIVE) Urine RBC 1-3 (0-2/HPF) Urine WBC 40-50 (0-5/HPF) Ur Epithelial Cells MODERATE (NONE-FEW) Urine Bacteria 1+ H (NEGATIVE) Urine HCG, Qual NEGATIVE (NEGATIVE) SARS-CoV-2 RNA (JUSTINE) (NEGATIVE) 12/22/20 12/22/20 12/22/20 Range/Units 19:04 20:58 21:34 WBC (4.0-11.0) K/uL RBC (4.30-5.90) M/uL Hgb (12.0-16.0) g/dL Hct (36.0-46.0) % MCV (80.0-98.0) fL MCH (27.0-32.0) pg MCHC (31.0-37.0) g/dL RDW Std Deviation (28.0-62.0) fl RDW Coeff of Aniyah (11.0-15.0) % Plt Count (150-400) K/uL MPV (7.40-12.00) fL Neut % (Auto) (48.0-80.0) % Lymph % (Auto) (16.0-40.0) % [place] % (Auto) (0.0-15.0) % Eos % (Auto) (0.0-7.0) % Baso % (Auto) (0.0-1.5) % Neut # (Auto) (1.4-5.7) K/uL Lymph # (Auto) (0.6-2.4) K/uL [place] # (Auto) (0.0-0.8) K/uL Eos # (Auto) (0.0-0.7) K/uL Baso # (Auto) (0.0-0.1) K/uL Add Manual Diff Neutrophils % (Manual) (48.0-80.0) % Band Neutrophils % % Lymphocytes % (Manual) (16.0-40.0) % Monocytes % (Manual) (0.0-15.0) % Eosinophils % (Manual) (0.0-7.0) % Basophils % (Manual) (0.0-1.5) % Nucleated RBC % /100WBC Absolute Seg Neuts (1.4-5.7) Band Neutrophils # Lymphocytes # (Manual) (0.6-2.4) Monocytes # (Manual) (0.0-0.8) Eosinophils # (Manual) (0.0-0.7) Basophils # (Manual) (0.0-0.1) Nucleated RBCs # K/uL Hypochromasia Poikilocytosis Anisocytosis Lactate 0.5 (0.20-2.00) mmol/L Sodium 134 L (136-145) mmol/L Potassium 3.5 (3.5-5.1) mmol/L Chloride 101 (98-107) mmol/L Carbon Dioxide 21.9 (21.0-32.0) mmol/L BUN 12 (7.0-18.0) mg/dL Creatinine 0.8 (0.6-1.0) mg/dL Est Cr Clr Drug Dosing 105.72 mL/min Estimated GFR (MDRD) > 60.0 ml/min Glucose 153 H (74-106) mg/dL Calcium 8.4 L (8.5-10.1) mg/dL Iron (50-175) ug/dL TIBC (250-450) ug/dL % Saturation (20-55) % Ferritin (8-252) ng/mL Total Bilirubin 0.4 (0.2-1.0) mg/dL AST 19 (15-37) IU/L ALT 31 (14-63) IU/L Alkaline Phosphatase 113 (46-116) U/L Total Protein 7.4 (6.4-8.2) g/dL Albumin 3.3 L (3.4-5.0) g/dL Globulin 4.1 H (2.6-4.0) g/dL Albumin/Globulin Ratio 0.8 L (0.9-1.6) Urine Color Urine Appearance Urine pH (5.0-8.0) Ur Specific [place] (1.001-1.035) Urine Protein (NEGATIVE) mg/dL Urine Glucose (UA) (NEGATIVE) mg/dL Urine Ketones (NEGATIVE) mg/dL Urine Occult Blood (NEGATIVE) Urine Nitrite (NEGATIVE) Urine Bilirubin (NEGATIVE) Urine Urobilinogen (<2.0) EU/dL Ur Leukocyte Esterase (NEGATIVE) Urine RBC (0-2/HPF) Urine WBC (0-5/HPF) Ur Epithelial Cells (NONE-FEW) Urine Bacteria (NEGATIVE) Urine HCG, Qual (NEGATIVE) SARS-CoV-2 RNA (JUSTINE) NEGATIVE (NEGATIVE) 12/23/20 12/23/20 12/23/20 Range/Units 05:12 05:12 05:12 WBC 16.17 H (4.0-11.0) K/uL RBC 3.85 L (4.30-5.90) M/uL Hgb 6.3 L (12.0-16.0) g/dL Hct 23.7 L (36.0-46.0) % MCV 61.6 L (80.0-98.0) fL MCH 16.4 L (27.0-32.0) pg MCHC 26.6 L (31.0-37.0) g/dL RDW Std Deviation 42.6 (28.0-62.0) fl RDW Coeff of Aniyah 19 H (11.0-15.0) % Plt Count 296 (150-400) K/uL MPV 8.40 (7.40-12.00) fL Neut % (Auto) 79.7 (48.0-80.0) % Lymph % (Auto) 10.0 L (16.0-40.0) % [place] % (Auto) 9.0 (0.0-15.0) % Eos % (Auto) 1.2 (0.0-7.0) % Baso % (Auto) 0.1 (0.0-1.5) % Neut # (Auto) 12.9 H (1.4-5.7) K/uL Lymph # (Auto) 1.6 (0.6-2.4) K/uL [place] # (Auto) 1.5 H (0.0-0.8) K/uL Eos # (Auto) 0.2 (0.0-0.7) K/uL Baso # (Auto) 0.0 (0.0-0.1) K/uL Add Manual Diff Neutrophils % (Manual) (48.0-80.0) % Band Neutrophils % % Lymphocytes % (Manual) (16.0-40.0) % Monocytes % (Manual) (0.0-15.0) % Eosinophils % (Manual) (0.0-7.0) % Basophils % (Manual) (0.0-1.5) % Nucleated RBC % 0.0 /100WBC Absolute Seg Neuts (1.4-5.7) Band Neutrophils # Lymphocytes # (Manual) (0.6-2.4) Monocytes # (Manual) (0.0-0.8) Eosinophils # (Manual) (0.0-0.7) Basophils # (Manual) (0.0-0.1) Nucleated RBCs # 0 K/uL Hypochromasia Poikilocytosis Anisocytosis Lactate (0.20-2.00) mmol/L Sodium 139 (136-145) mmol/L Potassium 3.8 (3.5-5.1) mmol/L Chloride 108 H (98-107) mmol/L Carbon Dioxide 22.8 (21.0-32.0) mmol/L BUN 8 (7.0-18.0) mg/dL Creatinine 0.7 (0.6-1.0) mg/dL Est Cr Clr Drug Dosing 120.82 mL/min Estimated GFR (MDRD) > 60.0 ml/min Glucose 104 (74-106) mg/dL Calcium 7.8 L (8.5-10.1) mg/dL Iron 6 L (50-175) ug/dL TIBC 330 (250-450) ug/dL % Saturation 1.82 L (20-55) % Ferritin 43 (8-252) ng/mL Total Bilirubin 0.3 (0.2-1.0) mg/dL AST 12 L (15-37) IU/L ALT 24 (14-63) IU/L Alkaline Phosphatase 88 (46-116) U/L Total Protein 5.9 L (6.4-8.2) g/dL Albumin 2.5 L (3.4-5.0) g/dL Globulin 3.4 (2.6-4.0) g/dL Albumin/Globulin Ratio 0.7 L (0.9-1.6) Urine Color Urine Appearance Urine pH (5.0-8.0) Ur Specific [place] (1.001-1.035) Urine Protein (NEGATIVE) mg/dL Urine Glucose (UA) (NEGATIVE) mg/dL Urine Ketones (NEGATIVE) mg/dL Urine Occult Blood (NEGATIVE) Urine Nitrite (NEGATIVE) Urine Bilirubin (NEGATIVE) Urine Urobilinogen (<2.0) EU/dL Ur Leukocyte Esterase (NEGATIVE) Urine RBC (0-2/HPF) Urine WBC (0-5/HPF) Ur Epithelial Cells (NONE-FEW) Urine Bacteria (NEGATIVE) Urine HCG, Qual (NEGATIVE) SARS-CoV-2 RNA (JUSTINE) (NEGATIVE) Result Diagrams: 12/23/20 05:12 12/23/20 05:12 Sepsis Event Note - Evaluation Sepsis Screening Result: No Definite Risk - Focused Exam Vital Signs: Vital Signs Temp Pulse Resp BP Pulse Ox Pulse Ox 12/23/20 03:26 99.4 F 88 12 98/54 L 98 12/22/20 23:26 96 12/22/20 22:29 98.8 F 98 16 110/67 96 12/22/20 21:48 107 H 14 114/63 94 L 12/22/20 21:03 106 H 16 106/56 L 95 12/22/20 20:35 107 H 16 111/52 L 94 L 12/22/20 20:07 100 20 106/63 96 - Problem List & Annotations (1) Sepsis SNOMED Code(s): 50457541 Code(s): A41.9 - SEPSIS, UNSPECIFIED ORGANISM Status: Acute Current Visit: Yes Qualifiers: Sepsis type: sepsis due to unspecified organism Sepsis acute organ dysfunction status: without acute organ dysfunction Qualified Code(s): A41.9 - Sepsis, unspecified organism (2) Pyelonephritis SNOMED Code(s): 94692650 Code(s): N12 - TUBULO-INTERSTITIAL NEPHRITIS, NOT SPCF ACUTE OR CHRONIC Status: Acute Current Visit: Yes (3) Chronic back pain SNOMED Code(s): 202044078 Code(s): M54.9 - DORSALGIA, UNSPECIFIED; G89.29 - OTHER CHRONIC PAIN Status: Chronic Current Visit: No Qualifiers: Back pain location: low back pain Back pain laterality: unspecified Sciatica presence: with sciatica Qualified Code(s): M54.5 - Low back pain; G89.29 - Other chronic pain; G89.29 - Other chronic pain (4) Other ovarian cyst, right side SNOMED Code(s): 37717420 Code(s): N83.291 - OTHER OVARIAN CYST, RIGHT SIDE Status: Acute Current Visit: No (5) Anemia SNOMED Code(s): 545693529 Code(s): D64.9 - ANEMIA, UNSPECIFIED Status: Chronic Current Visit: No Qualifiers: Anemia type: iron deficiency Iron deficiency anemia type: chronic blood loss Qualified Code(s): D50.0 - Iron deficiency anemia secondary to blood loss (chronic) (6) Dysfunctional uterine bleeding SNOMED Code(s): 04337534620062 Code(s): N93.8 - OTHER SPECIFIED ABNORMAL UTERINE AND VAGINAL BLEEDING Status: Chronic Current Visit: Yes - Problem List Review Problem List Initiated/Reviewed/Updated: Yes - My Orders Last 24 Hours: My Active Orders 12/23/20 07:57 RED BLOOD CELLS LP [BBK] Routine TYPE AND SCREEN [BBK] Routine 12/23/20 07:58 Verify Patient Consent Obtain [RC] ASDIRECTED 12/23/20 07:59 Intake and Output [RC] QSHIFT - Plan Plan:: 40 yo female admitted for suspected pyelonephritis with sepsis. 1. Sepsis with suspected pyelonephritis -Sepsis resolved with aggressive IV fluid resuscitation. Hypotension has resolved as well as tachycardia. -Continue meropenem and vancomycin -Blood cultures and urine culture are pending -Continue normal saline 125 mL/h -Dilaudid for pain control as needed -Zofran as needed nausea 2. Iron deficiency anemia likely secondary to dysfunctional uterine bleeding -Iron 6 TIBC 330% saturation 1.8 ferritin 43 -Hemoglobin today 6.3 patient is symptomatic with lightheadedness and dizziness -Transfuse 2 units PRBCs today monitor H&H 1 hour posttransfusion -We will obtain Hemoccult to ensure patient is not having GI bleeding -We will also give 500 mg IV iron today -Start oral iron supplementation -Referral for [employer] consultation due to dysfunctional uterine bleeding placed. 3. Chronic back pain with sciatica -Continue gabapentin and Soma -Encourage ambulation VTE prophylaxis: Hold heparin for now until Hemoccult is obtained GI prophylaxis: Protonix twice daily CODE STATUS: Full code Dispo 2 to 3 days pending improvement.
[2020-12-23] MEDS: Sertraline 100 MG Tab PO SCH ×2 (08:07→20:06)
[2020-12-23] MEDS: Acetaminophen 325 MG Tab PO PRN ×4 (08:19→22:52)
[2020-12-23] MEDS ORDERED: Iron Sucrose Complex 500 MG in Sodium Chloride 0.9% 250 ML IV ONE (11:00)
[2020-12-23] MEDS: Pantoprazole 40 MG in Sodium Chloride 0.9% 10 ML IV SCH (17:22)
[2020-12-24] MEDS: Meropenem Premix 50 ML IV SCH ×4 (01:08→18:53)
[2020-12-24] MEDS: Sodium Chloride 0.9% 1,000 ML IV SCH ×3 (01:08→22:11)
[2020-12-24] MEDS: HYDROmorphone 1 MG/ML Syringe IVPUSH PRN ×2 (03:33→07:24)
[2020-12-24] MEDS: Acetaminophen 325 MG Tab PO PRN ×3 (03:34→18:33)
[2020-12-24] MEDS: Pantoprazole 40 MG in Sodium Chloride 0.9% 10 ML IV SCH ×3 (05:26→18:51)
[2020-12-24] MEDS: Gabapentin 800 MG Tab PO SCH ×3 (05:28→22:19)
[2020-12-24 06:36] LABS: BLOOD UREA NITROGEN,BUN 4 mg/dL (7.0-18.0); CHLORIDE,CL 107 mmol/L (98-107); GLUCOSE RANDOM 97 mg/dL (74-106); POTASSIUM,K 3.6 mmol/L (3.5-5.1); SODIUM,NA 141 mmol/L (136-145)
[2020-12-24] MEDS: Sertraline 100 MG Tab PO SCH ×2 (09:08→22:19)
[2020-12-24] MEDS: oxyCODONE 5 MG Tab PO PRN ×3 (11:17→19:38)
--- NOTE | 2020-12-24 14:25 | PCM.PN ---
- General Info Date of Service: 12/24/20 Subjective Update: Patient states mild right-sided flank pain. Patient denies back pain or abdominal pain. Patient does states she is having slight headaches when taking Dilaudid for pain relief. Patient denies chest pain, shortness of breath, fever, chills, nausea, vomiting. - Review of Systems General: Denies: Fever Pulmonary: Denies: Shortness of Breath Cardiovascular: Denies: Chest Pain Gastrointestinal: Denies: Abdominal Pain, Nausea, Vomiting Neurological: Denies: Confusion - Patient Data Vitals - Most Recent: Last Vital Signs Temp 97.6 F 12/24/20 12:11 Pulse 97 12/24/20 12:11 Resp 14 12/24/20 12:11 BP 160/92 H 12/24/20 12:11 Pulse Ox 96 12/24/20 12:11 Weight - Most Recent: 198 lb 9.6 oz I&O - Last 24 Hours: Intake & Output 12/23/20 12/24/20 12/24/20 22:59 06:59 14:59 Intake Total 944 4865 Output Total 5100 Balance 944 -235 Lab Results Last 24 Hours: Laboratory Results - last 24 hr 12/23/20 12/23/20 12/24/20 Range/Units 09:13 19:30 05:55 WBC 11.44 H (4.0-11.0) K/uL RBC 4.40 (4.30-5.90) M/uL Hgb 8.7 L 8.2 L (12.0-16.0) g/dL Hct 30.0 L 28.6 L (36.0-46.0) % MCV 65.0 L (80.0-98.0) fL MCH 18.6 L (27.0-32.0) pg MCHC 28.7 L (31.0-37.0) g/dL RDW Std Deviation 53.1 (28.0-62.0) fl RDW Coeff of Aniyah 23 H (11.0-15.0) % Plt Count 299 (150-400) K/uL MPV 8.60 (7.40-12.00) fL Add Manual Diff YES Neutrophils % (Manual) 88 H (48.0-80.0) % Lymphocytes % (Manual) 6 L (16.0-40.0) % Monocytes % (Manual) 2 (0.0-15.0) % Eosinophils % (Manual) 3 (0.0-7.0) % Basophils % (Manual) 1 (0.0-1.5) % Nucleated RBC % 0.3 /100WBC Absolute Seg Neuts 10.1 H (1.4-5.7) Lymphocytes # (Manual) 0.7 (0.6-2.4) Monocytes # (Manual) 0.2 (0.0-0.8) Eosinophils # (Manual) 0.3 (0.0-0.7) Basophils # (Manual) 0.1 (0.0-0.1) Nucleated RBCs # 0 K/uL Poikilocytosis 1+ SLIGHT Anisocytosis 1+ SLIGHT Sodium (136-145) mmol/L Potassium (3.5-5.1) mmol/L Chloride (98-107) mmol/L Carbon Dioxide (21.0-32.0) mmol/L BUN (7.0-18.0) mg/dL Creatinine (0.6-1.0) mg/dL Est Cr Clr Drug Dosing mL/min Estimated GFR (MDRD) ml/min Glucose (74-106) mg/dL Calcium (8.5-10.1) mg/dL Magnesium (1.8-2.4) mg/dL Blood Type A POSITIVE Antibody Screen NEGATIVE Crossmatch See Detail 12/24/20 Range/Units 05:55 WBC (4.0-11.0) K/uL RBC (4.30-5.90) M/uL Hgb (12.0-16.0) g/dL Hct (36.0-46.0) % MCV (80.0-98.0) fL MCH (27.0-32.0) pg MCHC (31.0-37.0) g/dL RDW Std Deviation (28.0-62.0) fl RDW Coeff of Aniyah (11.0-15.0) % Plt Count (150-400) K/uL MPV (7.40-12.00) fL Add Manual Diff Neutrophils % (Manual) (48.0-80.0) % Lymphocytes % (Manual) (16.0-40.0) % Monocytes % (Manual) (0.0-15.0) % Eosinophils % (Manual) (0.0-7.0) % Basophils % (Manual) (0.0-1.5) % Nucleated RBC % /100WBC Absolute Seg Neuts (1.4-5.7) Lymphocytes # (Manual) (0.6-2.4) Monocytes # (Manual) (0.0-0.8) Eosinophils # (Manual) (0.0-0.7) Basophils # (Manual) (0.0-0.1) Nucleated RBCs # K/uL Poikilocytosis Anisocytosis Sodium 141 (136-145) mmol/L Potassium 3.6 (3.5-5.1) mmol/L Chloride 107 (98-107) mmol/L Carbon Dioxide 24.0 (21.0-32.0) mmol/L BUN 4 L (7.0-18.0) mg/dL Creatinine 0.7 (0.6-1.0) mg/dL Est Cr Clr Drug Dosing 120.82 mL/min Estimated GFR (MDRD) > 60.0 ml/min Glucose 97 (74-106) mg/dL Calcium 8.3 L (8.5-10.1) mg/dL Magnesium 2.0 (1.8-2.4) mg/dL Blood Type Antibody Screen Crossmatch Micheal Results Last 24 Hours: Microbiology 12/24/20 11:15 Stool Occult Blood (MICHEAL) - Final Stool / Feces 12/22/20 18:30 Urine Culture - Final Urine, Clean Catch MIXED KODAK <1000 CFU/ML 12/22/20 21:44 Aerobic Blood Culture - Preliminary Blood - Venous - Lab Draw NO GROWTH AFTER 1 DAY Anaerobic Blood Culture - Preliminary NO GROWTH AFTER 1 DAY 12/22/20 21:34 Aerobic Blood Culture - Preliminary Blood - Venous NO GROWTH AFTER 1 DAY Anaerobic Blood Culture - Preliminary NO GROWTH AFTER 1 DAY Med Orders - Current: Current Medications Acetaminophen (Acetaminophen 325 Mg Tab) 650 mg PO Q4H PRN PRN Reason: Pain (Mild 1-3)/fever Last Admin: 12/24/20 07:36 Dose: 650 mg Documented by: Carisoprodol (Carisoprodol 350 Mg Tab) 350 mg PO TID PRN PRN Reason: pain Last Admin: 12/24/20 09:27 Dose: 350 mg Documented by: Gabapentin (Gabapentin 800 Mg Tab) 800 mg PO TID J LUIS Last Admin: 12/24/20 05:28 Dose: 800 mg Documented by: Sodium Chloride (Normal Saline) 1,000 mls @ 125 mls/hr IV ASDIRECTED [facility] Last Admin: 12/24/20 11:19 Dose: 125 mls/hr Documented by: Vancomycin HCl 1.25 gm/ Sodium (Chloride) 250 mls @ 166.667 mls/hr IV Q12H [facility] Last Admin: 12/24/20 03:23 Dose: 166.667 mls/hr Documented by: Pantoprazole Sodium 40 mg/ (Sodium Chloride) 10 mls @ 300 mls/hr IV Q12H [facility] Last Admin: 12/24/20 05:26 Dose: 300 mls/hr Documented by: Meropenem/Sodium Chloride (Meropenem In Ns 1 Gm/50 Ml) 50 mls @ 100 mls/hr IV Q8H [facility] Last Admin: 12/24/20 09:09 Dose: 100 mls/hr Documented by: Ondansetron HCl (Ondansetron 4 Mg/2 Ml Sdv) 4 mg IVPUSH Q4H PRN PRN Reason: Nausea Oxycodone HCl (Oxycodone 5 Mg Tab) 5 mg PO Q4H PRN PRN Reason: Pain (moderate 4-6) Last Admin: 12/24/20 11:17 Dose: 5 mg Documented by: Sertraline HCl (Sertraline 100 Mg Tab) 100 mg PO BID [facility] Last Admin: 12/24/20 09:08 Dose: 100 mg Documented by: Vancomycin HCl (Pharmacy To Dose - Vancomycin) 1 dose .XX ASDIRECTED [facility] Discontinued Medications Heparin Sodium (Porcine) (Heparin Sodium 5,000 Units/Ml Vial) 5,000 units SUBCUT Q8H [facility] Last Admin: 12/23/20 06:36 Dose: 5,000 units Documented by: Hydromorphone HCl (Hydromorphone 1 Mg/Ml Syringe) 1 mg IVPUSH ONETIME ONE Stop: 12/22/20 19:58 Last Admin: 12/22/20 20:05 Dose: 1 mg Documented by: Hydromorphone HCl (Hydromorphone 1 Mg/Ml Syringe) 0.5 mg IVPUSH Q3H PRN PRN Reason: Pain Last Admin: 12/24/20 07:24 Dose: 0.5 mg Documented by: Sodium Chloride (Normal Saline) 1,000 mls @ 999 mls/hr IV ASDIRECTED [facility] Last Admin: 12/22/20 19:01 Dose: 999 mls/hr Documented by: Ceftriaxone Sodium/Dextrose 1 (gm/ Premix) 50 mls @ 100 mls/hr IV ONETIME ONE Stop: 12/22/20 19:32 Last Admin: 12/22/20 19:18 Dose: 100 mls/hr Documented by: Sodium Chloride (Normal Saline) 1,000 mls @ 125 mls/hr IV STAT ONE Stop: 12/23/20 05:08 Last Admin: 12/22/20 21:28 Dose: 125 mls/hr Documented by: Meropenem/Sodium Chloride (Meropenem In Ns 1 Gm/50 Ml) 50 mls @ 100 mls/hr IV Q8H [facility] Last Admin: 12/23/20 08:02 Dose: 100 mls/hr Documented by: Vancomycin HCl 2 gm/ Premix 400 mls @ 200 mls/hr IV STAT ONE Stop: 12/23/20 01:59 Last Admin: 12/23/20 01:35 Dose: 200 mls/hr Documented by: Iron Sucrose 500 mg/ Sodium (Chloride) 275 mls @ 62.5 mls/hr IV ONETIME ONE Stop: 12/23/20 15:23 Last Admin: 12/23/20 10:52 Dose: 62.5 mls/hr Documented by: Iopamidol (Iopamidol 755 Mg/Ml 500 Ml Multipack Bottle) 100 ml IVPUSH ONETIME STA Stop: 12/22/20 20:22 Last Admin: 12/22/20 20:22 Dose: 100 ml Documented by: Ketorolac Tromethamine (Ketorolac 30 Mg/Ml Sdv) 30 mg IVPUSH ONETIME ONE Stop: 12/22/20 18:40 Last Admin: 12/22/20 19:00 Dose: 30 mg Documented by: Omeprazole (Omeprazole 20 Mg Cap.Cr) 20 mg PO BIDAC [facility] Last Admin: 12/23/20 06:36 Dose: 20 mg Documented by: Ondansetron HCl (Ondansetron 4 Mg/2 Ml Sdv) 4 mg IVPUSH ONETIME ONE Stop: 12/22/20 18:40 Last Admin: 12/22/20 19:01 Dose: 4 mg Documented by: - Exam General: Alert, Oriented Lungs: Clear to Auscultation, Normal Respiratory Effort Cardiovascular: Regular Rate, Regular Rhythm GI/Abdominal Exam: Normal Bowel Sounds, Soft Back Exam: CVA Tenderness (R) Extremities: No Pedal Edema Psy/Mental Status: Alert - Patient Data Lab Results Last 24 hrs: Laboratory Results - last 24 hr 12/23/20 12/23/20 12/24/20 Range/Units 09:13 19:30 05:55 WBC 11.44 H (4.0-11.0) K/uL RBC 4.40 (4.30-5.90) M/uL Hgb 8.7 L 8.2 L (12.0-16.0) g/dL Hct 30.0 L 28.6 L (36.0-46.0) % MCV 65.0 L (80.0-98.0) fL MCH 18.6 L (27.0-32.0) pg MCHC 28.7 L (31.0-37.0) g/dL RDW Std Deviation 53.1 (28.0-62.0) fl RDW Coeff of Aniyah 23 H (11.0-15.0) % Plt Count 299 (150-400) K/uL MPV 8.60 (7.40-12.00) fL Add Manual Diff YES Neutrophils % (Manual) 88 H (48.0-80.0) % Lymphocytes % (Manual) 6 L (16.0-40.0) % Monocytes % (Manual) 2 (0.0-15.0) % Eosinophils % (Manual) 3 (0.0-7.0) % Basophils % (Manual) 1 (0.0-1.5) % Nucleated RBC % 0.3 /100WBC Absolute Seg Neuts 10.1 H (1.4-5.7) Lymphocytes # (Manual) 0.7 (0.6-2.4) Monocytes # (Manual) 0.2 (0.0-0.8) Eosinophils # (Manual) 0.3 (0.0-0.7) Basophils # (Manual) 0.1 (0.0-0.1) Nucleated RBCs # 0 K/uL Poikilocytosis 1+ SLIGHT Anisocytosis 1+ SLIGHT Sodium (136-145) mmol/L Potassium (3.5-5.1) mmol/L Chloride (98-107) mmol/L Carbon Dioxide (21.0-32.0) mmol/L BUN (7.0-18.0) mg/dL Creatinine (0.6-1.0) mg/dL Est Cr Clr Drug Dosing mL/min Estimated GFR (MDRD) ml/min Glucose (74-106) mg/dL Calcium (8.5-10.1) mg/dL Magnesium (1.8-2.4) mg/dL Blood Type A POSITIVE Antibody Screen NEGATIVE Crossmatch See Detail 12/24/20 Range/Units 05:55 WBC (4.0-11.0) K/uL RBC (4.30-5.90) M/uL Hgb (12.0-16.0) g/dL Hct (36.0-46.0) % MCV (80.0-98.0) fL MCH (27.0-32.0) pg MCHC (31.0-37.0) g/dL RDW Std Deviation (28.0-62.0) fl RDW Coeff of Aniyah (11.0-15.0) % Plt Count (150-400) K/uL MPV (7.40-12.00) fL Add Manual Diff Neutrophils % (Manual) (48.0-80.0) % Lymphocytes % (Manual) (16.0-40.0) % Monocytes % (Manual) (0.0-15.0) % Eosinophils % (Manual) (0.0-7.0) % Basophils % (Manual) (0.0-1.5) % Nucleated RBC % /100WBC Absolute Seg Neuts (1.4-5.7) Lymphocytes # (Manual) (0.6-2.4) Monocytes # (Manual) (0.0-0.8) Eosinophils # (Manual) (0.0-0.7) Basophils # (Manual) (0.0-0.1) Nucleated RBCs # K/uL Poikilocytosis Anisocytosis Sodium 141 (136-145) mmol/L Potassium 3.6 (3.5-5.1) mmol/L Chloride 107 (98-107) mmol/L Carbon Dioxide 24.0 (21.0-32.0) mmol/L BUN 4 L (7.0-18.0) mg/dL Creatinine 0.7 (0.6-1.0) mg/dL Est Cr Clr Drug Dosing 120.82 mL/min Estimated GFR (MDRD) > 60.0 ml/min Glucose 97 (74-106) mg/dL Calcium 8.3 L (8.5-10.1) mg/dL Magnesium 2.0 (1.8-2.4) mg/dL Blood Type Antibody Screen Crossmatch Result Diagrams: 12/24/20 05:55 12/24/20 05:55 Micheal Results Last 24 hrs: Microbiology 12/24/20 11:15 Stool Occult Blood (MICHEAL) - Final Stool / Feces 12/22/20 18:30 Urine Culture - Final Urine, Clean Catch MIXED KODAK <1000 CFU/ML 12/22/20 21:44 Aerobic Blood Culture - Preliminary Blood - Venous - Lab Draw NO GROWTH AFTER 1 DAY Anaerobic Blood Culture - Preliminary NO GROWTH AFTER 1 DAY 12/22/20 21:34 Aerobic Blood Culture - Preliminary Blood - Venous NO GROWTH AFTER 1 DAY Anaerobic Blood Culture - Preliminary NO GROWTH AFTER 1 DAY Sepsis Event Note - Evaluation Sepsis Screening Result: No Definite Risk - Focused Exam Vital Signs: Vital Signs Temp Pulse Resp BP Pulse Ox 12/24/20 12:11 97.6 F 97 14 160/92 H 96 12/24/20 09:31 97.6 F 68 14 136/76 95 12/24/20 03:22 96.9 F 80 18 136/83 94 L - Problem List & Annotations (1) Pyelonephritis SNOMED Code(s): 91680018 Code(s): N12 - TUBULO-INTERSTITIAL NEPHRITIS, NOT SPCF ACUTE OR CHRONIC Status: Acute Current Visit: Yes (2) Dysfunctional uterine bleeding SNOMED Code(s): 67695635128341 Code(s): N93.8 - OTHER SPECIFIED ABNORMAL UTERINE AND VAGINAL BLEEDING Status: Chronic Current Visit: Yes (3) Back pain SNOMED Code(s): 355686816 Code(s): M54.9 - DORSALGIA, UNSPECIFIED Status: Acute Current Visit: Yes Qualifiers: Back pain location: low back pain Chronicity: chronic Back pain laterality: right Sciatica presence: with sciatica Sciatica laterality: sciatica of right side Qualified Code(s): M54.41 - Lumbago with sciatica, right side; G89.29 - Other chronic pain (4) Chronic pain SNOMED Code(s): 50047870 Code(s): G89.29 - OTHER CHRONIC PAIN Status: Acute Current Visit: No (5) Anemia SNOMED Code(s): 877794215 Code(s): D64.9 - ANEMIA, UNSPECIFIED Status: Chronic Current Visit: Yes Qualifiers: Anemia type: iron deficiency Iron deficiency anemia type: chronic blood loss Qualified Code(s): D50.0 - Iron deficiency anemia secondary to blood loss (chronic) - Problem List Review Problem List Initiated/Reviewed/Updated: Yes - My Orders Last 24 Hours: My Active Orders 12/24/20 10:30 oxyCODONE 5 mg PO Q4H PRN - Plan Plan:: pyelonephritis- Continue meropenem and vancomycin, NS 125 mL/h, started Oxycodone 5mg Q4H PRN , Zofran as needed nausea Iron deficiency anemia likely secondary to dysfunctional uterine bleeding- HgB 8.2, patient received 2 units of PRBC, and IV iron 500 mg on 12-23-20, referral for [employer] consultation due to dysfunctional uterine bleeding placed. Chronic back pain with sciatica, Continue gabapentin and Soma Patient to be discharged tomorrow. Recommend Tylenol for Pain management and levofloxacin 750mg X 5 days for pyelonephritis to complete a 7 day course. (Final Urine culture grew mixed kodak< 1000 CFU/ML). Patient has received 2 days of both vancomycin and meropenem.
[2020-12-25] MEDS: oxyCODONE 5 MG Tab PO PRN ×3 (00:01→09:30)
[2020-12-25] MEDS: Meropenem Premix 50 ML IV SCH ×2 (03:28→11:14)
[2020-12-25] MEDS ORDERED: VANCOmycin 1.5 GM/300 ML 1.5 GM in Premix Bag 1 BAG IV SCH (05:00)
[2020-12-25] MEDS: Gabapentin 800 MG Tab PO SCH ×2 (05:10→13:15)
[2020-12-25] MEDS: Pantoprazole 40 MG in Sodium Chloride 0.9% 10 ML IV SCH (06:19)
[2020-12-25 06:28] LABS: BLOOD UREA NITROGEN,BUN 6 mg/dL (7.0-18.0); CHLORIDE,CL 105 mmol/L (98-107); GLUCOSE RANDOM 110 mg/dL (74-106); POTASSIUM,K 3.4 mmol/L (3.5-5.1); SODIUM,NA 140 mmol/L (136-145)
[2020-12-25] MEDS: Sertraline 100 MG Tab PO SCH (09:31)
[2020-12-25] MEDS: Sodium Chloride 0.9% 1,000 ML IV SCH (09:32)
[2020-12-25] MEDS ORDERED: Potassium Chloride 20 MEQ Tab.ER PO ONE (10:15)
--- NOTE | 2020-12-25 11:42 | PCM.DCSUM1 ---
Discharge Summary - Hospital Course Free Text/Narrative:: A 40-year-old female pmh of sciatica, chronic LBP and anemia presents to the emergency room with complaints of right lower back and RLQ pain, which started yesterday AM. She has had fever for 2 nights and body aches along with nausea. She had vomiting today. She has been treating the fever with Tylenol or Naprosyn. She has had a headache, chills, dizziness and tinnitus today. She states she has never had this type of back pain before. Nothing she does seems to help the pain. She states she has not felt like eating or drinking today. Patient denies change in vision, syncope or near syncope. Denies any chest pain, shortness of breath or cough. Denies any diarrhea, constipation or dysuria. Has not noted any blood in urine or stool. Patient has a leukocytosis of 20.98 with urine showing 40-50 WBC and +[address] showed no acute changes, patient was in sepsis due to UTI, , treated with broad spectrum antibiotics, sepsis eventually resolved, patient also received 2 units of PRBC due to low Hb of 6.3, attributed to her iron deficiency anemia due to dysfunctional uterine bleeding, no black stools or bloody vomitus. Patient Hb was stable post transfusion. Patient was eventfully stable for dc on oral antibiotics, urine culture showed mixed kodak, Patient requested 2 days supply of her soma and Gabapentin as she was going to see he PCP on Saturday and she ran out of her meds, Patient was recommended to see OBGYN for her uterine bleeding, and PCP for general follow up. - Discharge Data Discharge Date: 12/25/20 Discharge Disposition: Home, Self-Care 01 Condition: Stable - Referral to Home Health Primary Care Physician: Marialuisa Hunter NP - Discharge Plan Prescriptions/Med Rec: levoFLOXacin [Levaquin] 750 mg PO DAILY #5 tab Gabapentin [Neurontin] 800 mg PO TID #6 carisoprodoL [Soma] 350 mg PO TID #6 Home Medications: Home Meds Sertraline HCl [Zoloft] 100 mg PO BID 10/27/17 [History] Omeprazole 20 mg PO BIDAC 12/02/17 [History] Famotidine [Pepcid] 1 tab PO DAILY PRN 12/23/20 [History] Gabapentin [Neurontin] 800 mg PO TID #6 12/25/20 [Rx] carisoprodoL [Soma] 350 mg PO TID #6 12/25/20 [Rx] levoFLOXacin [Levaquin] 750 mg PO DAILY #5 tab 12/25/20 [Rx] Patient Handouts: Pyelonephritis, Adult, Gabapentin capsules or tablets, Preventing Iron Deficiency Anemia, Adult, Carisoprodol tablets, Levofloxacin tablets Forms: ED Department Discharge Referrals: Matilda Benton CNM, [facility] [Mid-] - 12/30/20 8:00 am Marialuisa Hunter NP [Primary Care Provider] - 01/03/21 12:00 pm - Discharge Summary/Plan Comment DC Time >30 min.: No - Patient Data Vitals - Most Recent: Last Vital Signs Temp 36.3 C 12/25/20 09:33 Pulse 72 12/25/20 09:33 Resp 14 12/25/20 09:33 BP 167/93 H 12/25/20 09:33 Pulse Ox 96 12/25/20 09:33 Weight - Most Recent: 90.083 kg I&O - Last 24 hours: Intake & Output 12/24/20 12/25/20 12/25/20 21:59 06:59 14:59 Intake Total Output Total Balance Lab Results - Last 24 hrs: Laboratory Results - last 24 hr 12/24/20 12/25/20 12/25/20 Range/Units 15:20 05:30 05:30 WBC 11.58 H (4.0-11.0) K/uL RBC 4.62 (4.30-5.90) M/uL Hgb 8.6 L (12.0-16.0) g/dL Hct 29.7 L (36.0-46.0) % MCV 64.3 L (80.0-98.0) fL MCH 18.6 L (27.0-32.0) pg MCHC 29.0 L (31.0-37.0) g/dL RDW Std Deviation 52.5 (28.0-62.0) fl RDW Coeff of Aniyah 23 H (11.0-15.0) % Plt Count 349 (150-400) K/uL MPV 8.20 (7.40-12.00) fL Add Manual Diff YES Neutrophils % (Manual) 87 H (48.0-80.0) % Lymphocytes % (Manual) 10 L (16.0-40.0) % Monocytes % (Manual) 3 (0.0-15.0) % Nucleated RBC % 0.5 /100WBC Absolute Seg Neuts 10.1 H (1.4-5.7) Lymphocytes # (Manual) 1.2 (0.6-2.4) Monocytes # (Manual) 0.3 (0.0-0.8) Nucleated RBCs # 0 K/uL Poikilocytosis 2+ MODERATE Anisocytosis 1+ SLIGHT Sodium 140 (136-145) mmol/L Potassium 3.4 L (3.5-5.1) mmol/L Chloride 105 (98-107) mmol/L Carbon Dioxide 23.0 (21.0-32.0) mmol/L BUN 6 L (7.0-18.0) mg/dL Creatinine 0.7 (0.6-1.0) mg/dL Est Cr Clr Drug Dosing 120.82 mL/min Estimated GFR (MDRD) > 60.0 ml/min Glucose 110 H (74-106) mg/dL Calcium 8.1 L (8.5-10.1) mg/dL Total Bilirubin 0.3 (0.2-1.0) mg/dL AST 28 (15-37) IU/L ALT 47 (14-63) IU/L Alkaline Phosphatase 113 (46-116) U/L Total Protein 6.7 (6.4-8.2) g/dL Albumin 2.6 L (3.4-5.0) g/dL Globulin 4.1 H (2.6-4.0) g/dL Albumin/Globulin Ratio 0.6 L (0.9-1.6) Vancomycin Trough 5.1 (5.0-10.0) ug/mL MARGARITA Results - Last 24 hrs: Microbiology 12/22/20 21:44 Aerobic Blood Culture - Preliminary Blood - Venous - Lab Draw NO GROWTH AFTER 2 DAYS Anaerobic Blood Culture - Preliminary NO GROWTH AFTER 2 DAYS 12/22/20 21:34 Aerobic Blood Culture - Preliminary Blood - Venous NO GROWTH AFTER 2 DAYS Anaerobic Blood Culture - Preliminary NO GROWTH AFTER 2 DAYS 12/24/20 11:15 Stool Occult Blood (MARGARITA) - Final Stool / Feces 12/22/20 18:30 Urine Culture - Final Urine, Clean Catch MIXED KODAK <1000 CFU/ML Med Orders - Current: Current Medications Acetaminophen (Acetaminophen 325 Mg Tab) 650 mg PO Q4H PRN PRN Reason: Pain (Mild 1-3)/fever Last Admin: 12/24/20 18:33 Dose: 650 mg Documented by: Carisoprodol (Carisoprodol 350 Mg Tab) 350 mg PO TID PRN PRN Reason: pain Last Admin: 12/25/20 05:11 Dose: 350 mg Documented by: Gabapentin (Gabapentin 800 Mg Tab) 800 mg PO TID [facility] Last Admin: 12/25/20 05:10 Dose: 800 mg Documented by: Sodium Chloride (Normal Saline) 1,000 mls @ 125 mls/hr IV ASDIRECTED [facility] Last Admin: 12/25/20 09:32 Dose: 125 mls/hr Documented by: Vancomycin HCl 1.5 gm/ Premix 300 mls @ 200 mls/hr IV Q12H [facility] Last Admin: 12/25/20 04:54 Dose: 200 mls/hr Documented by: Meropenem/Sodium Chloride (Meropenem In Ns 1 Gm/50 Ml) 50 mls @ 100 mls/hr IV Q8H [facility] Last Admin: 12/25/20 11:14 Dose: 100 mls/hr Documented by: Pantoprazole Sodium 40 mg/ (Sodium Chloride) 10 mls @ 300 mls/hr IV Q12H [facility] Last Admin: 12/25/20 06:19 Dose: 300 mls/hr Documented by: Ondansetron HCl (Ondansetron 4 Mg/2 Ml Sdv) 4 mg IVPUSH Q4H PRN PRN Reason: Nausea Oxycodone HCl (Oxycodone 5 Mg Tab) 5 mg PO Q4H PRN PRN Reason: Pain (moderate 4-6) Last Admin: 12/25/20 09:30 Dose: 5 mg Documented by: Sertraline HCl (Sertraline 100 Mg Tab) 100 mg PO BID [facility] Last Admin: 12/25/20 09:31 Dose: 100 mg Documented by: Vancomycin HCl (Pharmacy To Dose - Vancomycin) 1 dose .XX ASDIRECTED [facility] Discontinued Medications Heparin Sodium (Porcine) (Heparin Sodium 5,000 Units/Ml Vial) 5,000 units SUBCUT Q8H [facility] Last Admin: 12/23/20 06:36 Dose: 5,000 units Documented by: Hydromorphone HCl (Hydromorphone 1 Mg/Ml Syringe) 1 mg IVPUSH ONETIME ONE Stop: 12/22/20 19:58 Last Admin: 12/22/20 20:05 Dose: 1 mg Documented by: Hydromorphone HCl (Hydromorphone 1 Mg/Ml Syringe) 0.5 mg IVPUSH Q3H PRN PRN Reason: Pain Last Admin: 12/24/20 07:24 Dose: 0.5 mg Documented by: Sodium Chloride (Normal Saline) 1,000 mls @ 999 mls/hr IV ASDIRECTED [facility] Last Admin: 12/22/20 19:01 Dose: 999 mls/hr Documented by: Ceftriaxone Sodium/Dextrose 1 (gm/ Premix) 50 mls @ 100 mls/hr IV ONETIME ONE Stop: 12/22/20 19:32 Last Admin: 12/22/20 19:18 Dose: 100 mls/hr Documented by: Sodium Chloride (Normal Saline) 1,000 mls @ 125 mls/hr IV STAT ONE Stop: 12/23/20 05:08 Last Admin: 12/22/20 21:28 Dose: 125 mls/hr Documented by: Meropenem/Sodium Chloride (Meropenem In Ns 1 Gm/50 Ml) 50 mls @ 100 mls/hr IV Q8H [facility] Last Admin: 12/23/20 08:02 Dose: 100 mls/hr Documented by: Vancomycin HCl 2 gm/ Premix 400 mls @ 200 mls/hr IV STAT ONE Stop: 12/23/20 01:59 Last Admin: 12/23/20 01:35 Dose: 200 mls/hr Documented by: Vancomycin HCl 1.25 gm/ Sodium (Chloride) 250 mls @ 166.667 mls/hr IV Q12H [facility] Stop: 12/24/20 16:30 Last Admin: 12/24/20 17:07 Dose: 166.667 mls/hr Documented by: Iron Sucrose 500 mg/ Sodium (Chloride) 275 mls @ 62.5 mls/hr IV ONETIME ONE Stop: 12/23/20 15:23 Last Admin: 12/23/20 10:52 Dose: 62.5 mls/hr Documented by: Pantoprazole Sodium 40 mg/ (Sodium Chloride) 10 mls @ 300 mls/hr IV Q12H [facility] Last Admin: 12/24/20 17:32 Dose: Not Given Documented by: Meropenem/Sodium Chloride (Meropenem In Ns 1 Gm/50 Ml) 50 mls @ 100 mls/hr IV Q8H [facility] Last Admin: 12/24/20 17:32 Dose: Not Given Documented by: Iopamidol (Iopamidol 755 Mg/Ml 500 Ml Multipack Bottle) 100 ml IVPUSH ONETIME STA Stop: 12/22/20 20:22 Last Admin: 12/22/20 20:22 Dose: 100 ml Documented by: Ketorolac Tromethamine (Ketorolac 30 Mg/Ml Sdv) 30 mg IVPUSH ONETIME ONE Stop: 12/22/20 18:40 Last Admin: 12/22/20 19:00 Dose: 30 mg Documented by: Omeprazole (Omeprazole 20 Mg Cap.Cr) 20 mg PO BIDAC [facility] Last Admin: 12/23/20 06:36 Dose: 20 mg Documented by: Ondansetron HCl (Ondansetron 4 Mg/2 Ml Sdv) 4 mg IVPUSH ONETIME ONE Stop: 12/22/20 18:40 Last Admin: 12/22/20 19:01 Dose: 4 mg Documented by: Potassium Chloride (Potassium Chloride 20 Meq Tab.Er) 40 meq PO ONETIME ONE Stop: 12/25/20 10:16 Last Admin: 12/25/20 11:03 Dose: 40 meq Documented by:
[2020-12-25] MEDS ORDERED: Levofloxacin 250 MG Tab PO ONE (13:15)
== END 2020-12-25 13:20 | disposition home or self-care (01) | DRG 872 ==
LOC: MW.ED 18:13 → MW.MS 21:42
PROVIDERS: ADMIT Internal Medicine; ATTEND Internal Medicine
PROC: 30233N1 Transfusion of Nonautologous Red Blood Cells into Peripheral Vein, Percutaneous Approach (ICD-10-PCS; principal; 2020-12-22)
DX: A41.9 Sepsis, unspecified organism (principal); N39.0 Urinary tract infection, site not specified; N12 Tubulo-interstitial nephritis, not specified as acute or chronic; M54.41 Lumbago with sciatica, right side; N93.8 Other specified abnormal uterine and vaginal bleeding; M51.17 Intervertebral disc disorders with radiculopathy, lumbosacral region; Z20.822 Contact with and (suspected) exposure to COVID-19; F41.9 Anxiety disorder, unspecified; F32.9 Major depressive disorder, single episode, unspecified; F17.210 Nicotine dependence, cigarettes, uncomplicated; G89.29 Other chronic pain; D50.0 Iron deficiency anemia secondary to blood loss (chronic); N83.291 Other ovarian cyst, right side; Z90.49 Acquired absence of other specified parts of digestive tract; Z79.899 Other long term (current) drug therapy; Z88.1 Allergy status to other antibiotic agents; Z88.5 Allergy status to narcotic agent
CPT/HCPCS: 36415; 36430; 74177; 74177-26; 80048; 80053; 80202; 81001; 81025; 82272; 82728; 83550; 83605; 83735; 85014; 85018; 85025; 86850; 86900; 86901; 86920; 86921; 86922; 87040; 87086; 96365; 96375; 99284; 99285-25; A9270-GY; C9113; J0696; J1170; J1644; J1756; J1885; J2185; J2405; J3370; J7030; J7050; P9016; Q9967; U0002